=== PATIENT | female | born 1995 | race Caucasian/White ===

== ENCOUNTER 2017-02-21 22:51 | Emergency (ER) | payer BC ==
[~2017-02-21] VITALS: Ht 162.6 cm; Wt 68.0 kg
[~2017-02-21 22:51] MED LIST: CEPH-443 PO; ERYT1OIN6 RIGHT EYE; ONDA4TAB35 PO
[2017-02-21 22:55] VITALS: Ht 162.6 cm; Wt 68.0 kg
[2017-02-22 00:37] LABS: ADD SCAN DIFF NO
[2017-02-22 00:56] LABS: ABNORMAL IP MESSAGE 1; BASOPHILS % 0.2 % (0.0-2.0); EOSINOPHILS # 0.1 10^3/ul (0.0-0.5); EOSINOPHILS % 0.8 % (0.0-7.0); HEMATOCRIT 30.7 % (37.0-47.0); HEMOGLOBIN 8.8 g/dl (12.0-16.0); LYMPHOCYTES # 2.9 10^3/ul (0.8-2.9); LYMPHOCYTES % 23.8 % (15.0-51.0); MEAN CORPUSCULAR HEMOGLOBIN 19.9 pg (29.0-33.0); MEAN CORPUSCULAR HGB CONC 28.7 g/dl (32.0-37.0); MEAN CORPUSCULAR VOLUME 69.5 fl (82.0-101.0); MEAN PLATELET VOLUME 10.5 fl (7.4-10.4); MONOCYTE # 0.8 10^3/ul (0.3-0.9); MONOCYTES % 6.6 % (0.0-11.0); NEUTROPHIL # 8.2 10^3/ul (1.6-7.5); NEUTROPHILS % 67.8 % (39.0-77.0); NUCLEATED RED BLOOD CELLS% 0.2 /100WBC (0.0-0.0); PLATELET COUNT 270 10^3/UL (140-415); RED BLOOD COUNT 4.42 10^6/ul (4.20-5.40); RED CELL DISTRIBUTION WIDTH 16.6 % (11.5-14.5); WHITE BLOOD COUNT 12.1 10^3/ul (4.8-10.8)
--- NOTE | 2017-02-22 00:56 | ERD ---
ER Documentation Chief Complaint Date/Time DATE: 02/22/17 TIME: 00:54 Chief Complaint RLQ abd pain radaiting to back x 1 day HPI Patient is a 21-year-old female who is and states she just found out she was yesterday. Her last menstrual period was in July but she states that she is irregular and she usually only gets her period every 3 months. She denies any nausea vomiting or diarrhea. He has some mild bilateral pelvic pain. She has had occasional spotting but no bleeding at this time. No dysuria hematuria or increased urinary frequency. ROS All systems reviewed and are negative except as per history of present illness. Medications Home Meds Active Scripts Erythromycin (Erythromycin Opth) 3.5 Gm Oint..gm., 1 APPLIC RIGHT EYE QID for 7 Days, EA Prov:LARISSA ARREOLA M. 03/10/15 Ondansetron Hcl* (Zofran* ODT) 4 mg -ODT Tab.disper, 4 MG PO Q6 Y for NAUSEA AND /OR VOMITING, #10 TAB Prov:LARISSA ARREOLA M. 03/10/15 Cephalexin* (Keflex*) 500 Mg Capsule, 500 MG PO BID for 7 Days, CAP Prov:LARISSA ARREOLA M. 03/10/15 Allergies Allergies: Coded Allergies: No Known Allergy (Unverified , 07/28/14) PMhx/Soc Medical and Surgical Hx: pt denies Medical Hx, pt denies Surgical Hx Hx Alcohol Use: No Hx Substance Use: Yes (2 weeks ago) Hx Tobacco Use: No Smoking Status: Never smoker FmHx Family History: No diabetes Physical Exam Vitals Vital Signs Date Time Temp Pulse Resp B/P Pulse Ox O2 Delivery O2 Flow Rate FiO2 02/21/17 22:55 98.3 89 20 114/67 99 Physical Exam General: well developed, well nourished, alert, nontoxic, no distress Head: normocephalic, atraumatic Neck: Supple, nontender, no lymphadenopathy, no midline tenderness Respiratory: Clear to auscaultation bilaterally, speaks in full sentences, no use of accesory muscles or labored breathing, no rales, ronchi, or wheezing Cardiovascular: RRR, No murmurs GI: soft, non tender, non distended, negative murphys sign, negative mcburneys point tenderness, no cva tenderness bilaterally, no rebound or guarding Back: no midline tenderness, no step offs or bony abnormalities, sensation to light touch in tact Procedures/MDM This is a 21-year-old female who just found out she is . Her vitals are normal. She states she just found out that she wants to make sure everything is okay with the baby. Her last menstrual period was in July. I initiated an OB workup including labs and ultrasound. I received a call from the diagnostic technician stating that this patient is 26 weeks and therefore she was transferred to labor and delivery and will be examined in labor and delivery. Departure Diagnosis: Primary Impression: Condition: Stable DWAYNE NO PA-C Feb 22, 2017 00:56
[2017-02-22 01:00] LABS: ADD UMIC YES; UR AMORPHOUS CRYSTAL FEW /HPF (NONE SEEN); UR ASCORBIC ACID 40 mg/dL (NEGATIVE); UR BACTERIA FEW /HPF (NONE SEEN); UR BILIRUBIN (Dip) NEGATIVE (NEGATIVE); UR BLOOD (Dip) NEGATIVE (NEGATIVE); UR BUDDING YEAST FEW /HPF (NONE SEEN); UR CLARITY CLOUDY (CLEAR); UR COLOR YELLOW (YELLOW); UR GLUCOSE (Dip) NEGATIVE (NEGATIVE); UR KETONES (Dip) NEGATIVE (NEGATIVE); UR LEUKOCYTE ESTERASE (Dip) 3+ Leu/ul (NEGATIVE); UR MUCUS FEW /HPF (NONE SEEN); UR NITRITE (Dip) NEGATIVE (NEGATIVE); UR RBC 4 /HPF (0-5); UR SPECIFIC GRAVITY (Dip) 1.017 (1.003-1.030); UR SQUAMOUS EPITHELIAL CELL FEW /HPF (FEW); UR TOTAL PROTEIN (Dip) NEGATIVE (NEGATIVE); UR UROBILINOGEN (Dip) 2+ mg/dL (NEGATIVE); UR WBC CLUMPS FEW /HPF (NONE SEEN)
== END 2017-02-22 01:00 | disposition home or self-care (01) ==
LOC: FTE 22:51 → E/R 02-22 01:00
DX: O26.892 Other specified pregnancy related conditions, second trimester (principal); R10.31 Right lower quadrant pain; R10.2 Pelvic and perineal pain; Z3A.26 26 weeks gestation of pregnancy
CPT/HCPCS: 36415; 81001; 84702; 85025; 86900; 86901; Z7502; 99283

== ENCOUNTER 2017-02-22 01:08 | Outpatient (CLI) | payer BC ==
[~2017-02-22] VITALS: Ht 160 cm; Wt 62.7 kg
[2017-02-22 01:40] VITALS: Ht 160 cm; Wt 62.7 kg
[2017-02-22 01:41] VITALS: BP 121/74; PULSE 85; RESP 18
--- NOTE | 2017-02-22 04:39 | RADRPT ---
PROCEDURE: ULTRASOUND BIOPHYSICAL PROFILE CLINICAL INDICATION: 21-year-old female with pelvic pain viability. TECHNIQUE: Multiple sonographic images were obtained in order to perform a biophysical profile The images were reviewed on a PACS workstation. COMPARISON: None. FINDINGS: The cervix is closed with a length of 3.8 cm There is a single viable intrauterine gestation. There is a vertex presentation. Cardiac activity is present at 143 beats per minute. The placenta is ant erior. The results of the biophysical profile are as follows: breathing movement = 2/2 Gross body movement = 2/2 tone = 2/2 Qualitative amniotic fluid volume = 2/2 Amniotic fluid index equals 14.0 cm. This yields a biophysical profile score of 8/8. IMPRESSION: Biophysical profile score is 8/8. .Fuentes Boateng MD, Date Time Electronically viewed and signed by .Fuentes Boateng MD, on 02/22/2017 04:38 .M/
--- NOTE | 2017-02-22 04:40 | RADRPT ---
PROCEDURE: ULTRASOUND OBSTETRICAL CLINICAL INDICATION: 21-year-old female with pelvic pain for size and date determination. TECHNIQUE: Multiple sonographic images of the pelvis were obtained. The images were reviewed on a PACS workstation. COMPARISON: Ultrasound biophysical profile obtained concurrently. FINDINGS: There is a single viable intrauterine gestation. Cardiac activity is present with 134 beats per min yeimi. There is a vertex presentation. Measurements were made in order to determine age. The res ults are as follows: BPD = 7.01 cm, HC = 25.46 cm, AC = 22.99 cm, FL = 5.15 cm. This yields and estimated gestational ag e of approximately 27 weeks 5 days. The estimated date of delivery is May 19, 2017. The EFW = 1084 +/- 163 g (2 lb 6 oz). The placenta is anterior. There is no evidence for an abruption or placenta previa. IMPRESSION: Single viable intrauterine gestation of approximately is 7 weeks 5 days. The estimated date of deli very is May 19, 2017. .Fuentes Boateng MD, Date Time Electronically viewed and signed by .Fuentes Boateng MD, on 02/22/2017 04:40 .M/
--- NOTE | 2017-02-22 06:12 | PN ---
Triage Information Date/Time February 22, 2017 Weeks of Gestation 27w 5d : 3 Para: 2 Diabetes: none Additional information Has not yet been to care as just found out she was yesterday. Pt came in for lower abdominal pain. PMHx: none. PSHx: none. POBHx: x 2. NKDA. Objective Vital Signs Date Time Temp Pulse Resp B/P Pulse Ox O2 Delivery O2 Flow Rate FiO2 02/22/17 01:41 98.4 85 18 121/74 Room Air Heart Rate: 130's Heart Rate Comments With accels to 150 bpm. No decels. No UC's. Exam Cervical exam deferred. Results/Medications Imaging Results EFW 1084 grams. VTX. Anterior placenta. Cx is 3.8 cm. LACIE 14.0. BPP 8/8. Assessment/Plan A: IUP at 27w 5days. False labor. P: D/C home. Pt has already made an appt for care. RENETTA SWANSON MD Feb 22, 2017 06:12
== END 2017-02-22 06:10 | disposition home or self-care (01) ==
LOC: OBT 01:08 → L-D 01:09 → OBT 06:10
PROVIDERS: ATTEND Obstetrics & Gynecology
DX: O47.02 False labor before 37 completed weeks of gestation, second trimester (principal); Z3A.27 27 weeks gestation of pregnancy
CPT/HCPCS: 76815; 76817; 76818; Z7500; G0463

== ENCOUNTER 2017-08-18 16:18 | Emergency (ER) | payer BC, OTHER ==
[~2017-08-18] VITALS: Ht 160 cm; Wt 58.6 kg
[2017-08-18 16:26] VITALS: Ht 160 cm; Wt 58.6 kg
[2017-08-18] MEDS ORDERED: morphine 4 MG/ML VIAL IV STA (17:47)
[2017-08-18] MEDS ORDERED: ONDANSETRON 4 MG INJ IV STA (17:47)
--- NOTE | 2017-08-18 18:06 | RADRPT ---
PROCEDURE: Right upper quadrant abdominal ultrasound. CLINICAL INDICATION: Abdominal pain TECHNIQUE: Hughes scale and color doppler ultrasound images of the right upper quadrant of the abdom en. COMPARISON: None FINDINGS: Pancreas: Visualized portions appear of normal echogenicity without focal lesions. Liver: Morphology:Normal in size. Contour:Normal, no evidence of nodularity. Echogenicity: Normal. Focal lesions:None. Main portal vein: Patent with hepatopetal flow. Biliary System: Gallbladder wall: Normal thickness. Gallstones: Present Intrahepatic bile ducts: Normal caliber. Common bile duct diameter (mm): 1.9 Kidneys: Right length (cm) : 9.8 Right cortical thickness: Normal. Echogenicity: Normal. Hydronephrosis: None. Renal calculi: None. Focal lesions: None. Free fluid/ascites: None. Abdominal aorta: Normal caliber of the visualized segments. Other findings: None. IMPRESSION: Cholelithiasis without evidence of abnormal gallbladder wall thickening to suggest cholecystitis. Normal caliber of the intrahepatic and extrahepatic biliary system. RPTAT: AADD .Jeancarlos Barajas MD, MD Date Time Electronically viewed and signed by .Jeancarlos Barajas MD, MD on 08/18/2017 18:06 .B/
--- NOTE | 2017-08-18 18:28 | ERD ---
ER Documentation Chief Complaint Chief Complaint rt side rib pain x 2 days HPI This is a 22-year-old female who presents emergency department today complaining of right-sided abdominal pain for the past 2 days. States she had pain on the left side a couple of days ago and then it moved to her right side. States she tried Advil with no improvement in symptoms. States that she feels chilled but denies any nausea vomiting, fevers. Denies any cough or dysuria. States that she is currently on her menstrual cycle. ROS All systems reviewed and are negative except as per history of present illness. Medications Home Meds Active Scripts Ondansetron Hcl* (Zofran*) 4 Mg Tablet, 4 MG PO Q6H for NAUSEA AND/OR VOMITING, #30 TAB Prov:SANDRA PARRY PA-C 08/19/17 Polyethylene Glycol* (Miralax*) 17 Gm Powd.pack, 17 GM PO DAILY, #14 Prov:SANDRA PARRY PA-C 08/19/17 Acetaminophen* (Tylophen*) 500 Mg Capsule, 1 CAP PO Q6H Y for PAIN AND OR ELEVATED TEMP, #30 CAP Prov:SANDRA PARRY PA-C 08/19/17 Ferrous Sulfate* (Ferrous Sulfate*) 325 Mg Tabec, 325 MG PO BID, #30 TAB Prov:SANDRA PARRY PA-C 08/19/17 Naproxen* (Naprosyn*) 500 Mg Tablet, 500 MG PO BID Y for PAIN AND/OR INFLAMMATION, #30 TAB Prov:SANDRA PARRY PA-C 08/19/17 Hydrocodone/Acetaminophen ([place] 5-325 Tablet) 1 Each Tablet, 1 TAB PO Q6H Y for PAIN, #12 TAB Prov:SANDRA PARRY PA-C 08/19/17 Doxycycline Hyclate* (Doxycycline Hyclate*) 100 Mg Tablet.dr, 100 MG PO BID for 14 Days, TAB Prov:SANDRA PARRY PA-C 08/19/17 Allergies Allergies: Coded Allergies: No Known Allergy (Unverified , 07/28/14) PMhx/Soc Medical and Surgical Hx: pt denies Medical Hx, pt denies Surgical Hx Hx Alcohol Use: No Hx Substance Use: Yes (2 weeks ago) Hx Tobacco Use: No Physical Exam Vitals Vital Signs Date Time Temp Pulse Resp B/P Pulse Ox O2 Delivery O2 Flow Rate FiO2 08/18/17 16:26 98.1 108 18 117/58 100 Physical Exam Const: NAD Head: Atraumatic Eyes: Normal Conjunctiva ENT: Normal External Ears, Nose and Mouth. Neck: Full range of motion..~ No meningismus. Resp: Clear to auscultation bilaterally Cardio: Regular rate and rhythm, no murmurs Abd: Soft, epigastric and right upper quadrant tenderness non distended. Normal bowel sounds no lower abdominal pain. No tenderness at McBurney's. Skin: No petechiae or rashes Back: No midline or flank tenderness Ext: No cyanosis, or edema Neur: Awake and alert Psych: Normal Mood and Affect Result Diagram: 08/18/17181508/18/171815 Results 24 hrs Laboratory Tests Test 08/18/17 18:16 White Blood Count 17.510^3/ul Red Blood Count 4.8410^6/ul Hemoglobin 9.2g/dl Hematocrit 31.1% Mean Corpuscular Volume 64.3fl Mean Corpuscular Hemoglobin 19.0pg Mean Corpuscular Hemoglobin Concent 29.6g/dl Red Cell Distribution Width 17.0% Platelet Count 16706^3/UL Mean Platelet Volume 10.0fl Neutrophils % 82.6% Lymphocytes % 10.7% Monocytes % 5.8% Eosinophils % 0.3% Basophils % 0.2% Nucleated Red Blood Cells % 0.0/100WBC Neutrophils # 14.410^3/ul Lymphocytes # 1.910^3/ul Monocytes # 1.010^3/ul Eosinophils # 0.110^3/ul Basophils # 0.010^3/ul Nucleated Red Blood Cells # 0.010^3/ul Urine Color YELLOW Urine Clarity CLEAR Urine pH 7.0 Urine Specific [place] 1.010 Urine Ketones NEGATIVEmg/dL Urine Nitrite NEGATIVEmg/dL Urine Bilirubin NEGATIVEmg/dL Urine Urobilinogen NEGATIVEmg/dL Urine Leukocyte Esterase 2+Purnima/ul Urine Microscopic RBC 3/HPF Urine Microscopic WBC 19/HPF Urine Mucus FEW/HPF Urine Hemoglobin 2+mg/dL Urine Glucose NEGATIVEmg/dL Urine Total Protein NEGATIVEmg/dl Sodium Level 139mmol/L Potassium Level 3.9mmol/L Chloride Level 101mmol/L Carbon Dioxide Level 27mmol/L Anion Gap 15 Blood Urea Nitrogen 5mg/dl Creatinine 0.49mg/dl Glucose Level 108mg/dl Calcium Level 8.7mg/dl Total Bilirubin 0.2mg/dl Direct Bilirubin 0.00mg/dl Indirect Bilirubin 0.2mg/dl Aspartate Amino Transf (AST/SGOT) 23IU/L Alanine Aminotransferase (ALT/SGPT) 69IU/L Alkaline Phosphatase 125IU/L Total Protein 7.6g/dl Albumin 3.6g/dl Globulin 4.00g/dl Albumin/Globulin Ratio 0.90 Lipase 36U/L Current Medications Medications (Trade) Dose Ordered Sig/Izaiah Route PRN Reason Start Time Stop Time Status Last Admin Dose Admin Morphine Sulfate (morphine) 4 mg ONCE STAT IV 08/18/17 17:47 08/18/17 17:49 DC 08/18/17 18:23 Ondansetron HCl (Zofran Inj) 4 mg ONCE STAT IV 08/18/17 17:47 08/18/17 17:49 DC 08/18/17 18:23 Acetaminophen 500 mg 500 mg ONCE STAT PO 08/18/17 19:20 08/18/17 19:21 DC 08/18/17 19:50 Sodium Chloride 1,000 ml @ 1,000 mls/hr Q1H ONCE IV 08/18/17 19:30 08/18/17 20:29 DC 08/18/17 19:49 Ceftriaxone Sodium (Rocephin) 50 ml @ 100 mls/hr ONCE ONCE IVPB 08/18/17 19:30 08/18/17 19:59 DC 08/18/17 19:49 Ketorolac Tromethamine (Toradol) 30 mg ONCE STAT IV 08/18/17 22:25 08/18/17 22:27 DC 08/18/17 22:33 IV Flush 10 ml 10 ml STK-MED ONCE .ROUTE 08/18/17 23:16 08/18/17 23:17 DC Sodium Chloride (NS) 100 ml @ ud STK-MED ONCE .ROUTE 08/18/17 23:16 08/18/17 23:17 DC Iohexol (Omnipaque 300mg/ ml) 150 ml STK-MED ONCE .ROUTE 08/18/17 23:16 08/18/17 23:17 DC DIAGNOSTIC IMAGING REPORT Patient: EDMUNDO WEBSTER : 1995 Age: 22 Sex: F MR #: [id number] DOS: 08/18/17 174 Ordering MD: SANDRA PARRY PA-C Location: [facility] Room/Bed: PROCEDURE: Right upper quadrant abdominal ultrasound. CLINICAL INDICATION: Abdominal pain TECHNIQUE: Hughes scale and color doppler ultrasound images of the right upper quadrant of the abdomen. COMPARISON: None FINDINGS: Pancreas: Visualized portions appear of normal echogenicity without focal lesions. Liver: Morphology:Normal in size. Contour:Normal, no evidence of nodularity. Echogenicity: Normal. Focal lesions:None. Main portal vein: Patent with hepatopetal flow. Biliary System: Gallbladder wall: Normal thickness. Gallstones: Present Intrahepatic bile ducts: Normal caliber. Common bile duct diameter (mm): 1.9 Kidneys: Right length (cm) : 9.8 Right cortical thickness: Normal. Echogenicity: Normal. Hydronephrosis: None. Renal calculi: None. Focal lesions: None. Free fluid/ascites: None. Abdominal aorta: Normal caliber of the visualized segments. Other findings: None. IMPRESSION: Cholelithiasis without evidence of abnormal gallbladder wall thickening to suggest cholecystitis. Normal caliber of the intrahepatic and extrahepatic biliary system. RPTAT: AADD .Jeancarlos Barajas MD, MD Date Time Electronically viewed and signed by .Jeancarlos Barajas MD, MD on 08/18/2017 18:06 .B/ CC: SANDRA PARRY PA-C DIAGNOSTIC IMAGING REPORT Patient: EDMUNDO WEBSTER : 1995 Age: 22 Sex: F MR #: [id number] DOS: 08/18/17 194 Ordering MD: SANDRA PARRY PA-C Location: [facility] Room/Bed: PROCEDURE: CT abdomen and pelvis without contrast. CLINICAL INDICATION: Abdominal Pain TECHNIQUE: CT scan of the abdomen and pelvis without contrast was performed and is reconstructed at 2.5 mm contiguous axial intervals from the dome of the diaphragm to the inferior pubic rami.. The patient was scanned without intravenous contrast. Sagittal and coronal reformatted images were obtained from the axial source images. The calculated radiation dose measures 282 mGy centimeters. The CTDI measures 5 mGy. Individualized dose optimization technique was used for the performance of this exam. This included 1. Automated exposure control. 2. Adjustment of the mA and / or kV according to the patient's size. 3. Use of iterative reconstructed technique. COMPARISON: None. FINDINGS: The lung bases are clear of any infiltrate or nodule. No effusion is seen. The liver is of normal size, contour and attenuation with no mass or ductal dilatation. There is a noncalcified gallstone. No splenic, adrenal or pancreatic abnormalities present. Kidneys are of normal size and contour. No hydronephrosis, calculus or masses seen. Ureters are of normal course and caliber with no stone. No bladder mass or stone is present. The uterus is unremarkable. The right adnexa is prominent measuring 4 cm in transverse diameter. There is no associated calcification. The mabry are somewhat indistinct. There is stranding of the fat in the right wm pelvis surrounding the adnexa. The appendix is not confidently visualized. It is unclear if findings represent evidence of tubal ovarian abscess or possibly appendicitis. There is no aneurysm. No adenopathy is present. No bowel mass or obstruction is present. No ascites or pneumoperitoneum is visualized. The osseous structures are intact. IMPRESSION: Nonvisualization appendix. Prominent right adnexa. Stranding fat right wm pelvis. Question TO A versus appendicitis. Consider pelvic ultrasound and / or repeat targeted CT of right lower quadrant with intravenous and rectal or delayed oral contrast for more definitive diagnosis. Noncalcified gallstones. .Yosef Garcia MD, MD Date Time Electronically viewed and signed by .Yosef Garcia MD, on 08/18/2017 20: 42 .A/ CC: SANDRA PARRY PA-C DIAGNOSTIC IMAGING REPORT Patient: EDMUNDO WEBSTER : 1995 Age: 22 Sex: F MR #: [id number] DOS: 08/18/17 0000 Ordering MD: SANDRA PARRY PA-C Location: [facility] Room/Bed: PROCEDURE: US Pelvis. CLINICAL INDICATION: pelvic pain TECHNIQUE: Multiple sonographic images of the pelvis were obtained utilizing a transabdominal technique. The images were reviewed on a PACS workstation. COMPARISON: Recent CT FINDINGS: The uterus is normal in size with a normal appearance of the myometrium. The uterus measures 9.10 x 4.7 x 6.6 cm. The endometrial stripe is homogeneous in appearance and has the thickness of 6 mm. The ovaries are normal in size and echogenicity. Normal Doppler flow is identified in both ovaries. The right ovary measures 4.5 x 3.0 x 3.4 cm. The left ovary measures 2.6 x 1.2 x 2.1 cm. No free fluid is present within the pelvis. RPTAT: AA IMPRESSION: Unremarkable pelvic ultrasound. .Gabe Ramirez MD MD Date Time Electronically viewed and signed by .Gabe Ramirez MD, MD on 08/18/2017 22: 09 .S/ CC: SANDRA PARRY PA-C Procedures/MDM This is a a 22-year-old female who presents the emergency department today complaining of right-sided abdominal pain for the past couple of days. Patient' s intake report stated that her pain was in her ribs. Patient was tachycardic at 108. Her oxygen saturation 100%. She is afebrile however on physical exam patient had epigastric and right upper quadrant tenderness and therefore did obtain laboratory workup as well as imaging Laboratory workup shows an elevated white blood cell count of 17.5. Her hemoglobin is decreased at 9.2. Her platelets are within normal limits. Electrolytes are within normal limits. Glucose is within normal limits. Liver enzymes are within normal limits. Bilirubin is within normal limits. Lipase is within normal limits. UA shows 2+ leukocyte esterase and 19 microscopic white blood cells. test is negative Right upper quadrant ultrasound shows cholelithiasis without evidence of abnormal gallbladder wall thickening to suggest cholecystitis. The common bile duct measures 1.9 mm in maximal dimension. I went back to reevaluate the patients pain and the patient felt warm and I rechecked her temperature myself and she had a fever of 101.1. Patient was then given IV fluids and Rocephin. Patient reported that her pain was starting to return however this time it was lower. Given that patient had an elevated white blood cell count, now lower abdominal pain physical exam and was febrile I did obtain a CT abdomen pelvis noncontrast CT abdomen pelvis noncontrast shows nonvisualization of the appendix there is a prominent right adnexa with stranding of the fat in the right hemipelvis. This is questionable TOA versus appendicitis. Ultrasound of the pelvis was then obtained Pelvic ultrasound is unremarkable. there is normal Doppler flow to both ovaries. No free fluid within the pelvis. Right ovary was slightly bigger than the left ovary. Given normal pelvic ultrasound and concern on CT for possible appendicitis I consulted my attending physician Dr. Briceno, who saw and evaluated the patient and recommended repeating the CT scan with IV contrast. CT abdomen pelvis IV contrast shows an appearance of an unremarkable retrocecal appendix is partially delineated. There is again the appearance of inflammation in the right mid pelvis which appears to involve the right adnexal region which could be secondary to right TOA versus pelvic inflammatory disease. There is trace free fluid in the cul-de-sac. There is minimal inflammation again seen in the right inferior perihepatic region. There is gallstones. I spoke to the radiologist who read the CT abdomen pelvis with IV contrast who recommended gynecology consult. He does not feel that this patient has acute appendicitis given the location of the elevation however he did state that there was a significant amount of inflammation in the area and this may be related to pelvic inflammatory disease. I did place a call to the on-call laborist, Dr. Gustafson came and evaluated the patient and did a pelvic exam on her and he feels that this is most likely pelvic inflammatory disease. Patient had already been given Rocephin. He did offer to have the patient stay in the hospital and admit her given that she had had a fever earlier. I did recheck it and patient's temperature was 98.7. Patient indicated that she would prefer to go home and follow-up as an outpatient. She was given referral information for Dr. Gustafson's office. I also obtain blood cultures and a urine culture and send the urine for gonorrhea and chlamydia prior to her discharge. Patient will be discharged home with medication pain, Zofran for nausea and doxycycline for 2 weeks. Patient was instructed to return for any persistent or worsening of symptoms, vomiting fevers or inability to take oral medications. Patient understood and agreed with the plan. Patient's symptoms consistent with1) gallstone 2) pelvic inflammatory disease 3) UTI 4) Anemia At this time the patient is stable for discharge and outpatient management. Patient should follow up with their PCP in the next 1-2 days. They may return to the emergency department sooner for any persistent or worsening of symptoms. Patient understood and agreed with the plan. Departure Diagnosis: Primary Impression: Gallstones Additional Impression: PID (acute pelvic inflammatory disease) Condition: SANDRA Chavez PA-C Aug 18, 2017 18:28
[2017-08-18 18:37] LABS: BASOPHILS % 0.2 % (0.0-2.0); EOSINOPHILS # 0.1 10^3/ul (0.0-0.5); EOSINOPHILS % 0.3 % (0.0-7.0); HEMATOCRIT 31.1 % (37.0-47.0); HEMOGLOBIN 9.2 g/dl (12.0-16.0); LYMPHOCYTES # 1.9 10^3/ul (0.8-2.9); LYMPHOCYTES % 10.7 % (15.0-51.0); MEAN CORPUSCULAR HGB CONC 29.6 g/dl (32.0-37.0); MEAN CORPUSCULAR VOLUME 64.3 fl (82.0-101.0); MONOCYTES % 5.8 % (0.0-11.0); NEUTROPHIL # 14.4 10^3/ul (1.6-7.5); NEUTROPHILS % 82.6 % (39.0-77.0); PLATELET COUNT 418 10^3/UL (140-415); RED BLOOD COUNT 4.84 10^6/ul (4.20-5.40); WHITE BLOOD COUNT 17.5 10^3/ul (4.8-10.8)
[2017-08-18 18:44] LABS: ADD UMIC YES; UR ASCORBIC ACID NEGATIVE (NEGATIVE); UR BILIRUBIN (Dip) NEGATIVE (NEGATIVE); UR BLOOD (Dip) 2+ mg/dL (NEGATIVE); UR CLARITY CLEAR (CLEAR); UR COLOR YELLOW (YELLOW); UR GLUCOSE (Dip) NEGATIVE (NEGATIVE); UR KETONES (Dip) NEGATIVE (NEGATIVE); UR LEUKOCYTE ESTERASE (Dip) 2+ Leu/ul (NEGATIVE); UR MUCUS FEW /HPF (NONE SEEN); UR NITRITE (Dip) NEGATIVE (NEGATIVE); UR RBC 3 /HPF (0-5); UR TOTAL PROTEIN (Dip) NEGATIVE (NEGATIVE); UR UROBILINOGEN (Dip) NEGATIVE (NEGATIVE)
[2017-08-18 18:55] LABS: ALBUMIN 3.6 g/dl (3.3-4.9); ALBUMIN/GLOBULIN RATIO 0.9; BILIRUBIN,INDIRECT 0.2 mg/dl (0-1.1); BILIRUBIN,TOTAL 0.2 mg/dl (0.2-1.3); CALCIUM 8.7 mg/dl (8.4-10.2); CREATININE 0.49 mg/dl (0.44-1.00); POTASSIUM 3.9 mmol/L (3.5-5.1); TOTAL PROTEIN 7.6 g/dl (6.1-8.1)
[2017-08-18] MEDS ORDERED: ACETAMINOPHEN 500 MG TAB PO STA (19:20)
[2017-08-18] MEDS ORDERED: SOD CHLORIDE 0.9% 1,000 ML IV ONE (19:30)
[2017-08-18] MEDS ORDERED: CEFTRIAXONE 1 GM/50 ML (PMX) 50 ML IVPB ONE (19:30)
--- NOTE | 2017-08-18 20:43 | RADRPT ---
PROCEDURE: CT abdomen and pelvis without contrast. CLINICAL INDICATION: Abdominal Pain TECHNIQUE: CT scan of the abdomen and pelvis without contrast was performed and is reconstructed a t 2.5 mm contiguous axial intervals from the dome of the diaphragm to the inferior pubic rami.. The patient was scanned without intravenous contrast. Sagittal and coronal reformatted images were obt ained from the axial source images. The calculated radiation dose measures 282 mGy centimeters. The CTDI measures 5 mGy. Individualized dose optimization technique was used for the performance of this exam. This included 1. Automated exposure control. 2. Adjustment of the mA and / or kV according to the patient's size. 3. Use of iterative reconstructed technique. COMPARISON: None. FINDINGS: The lung bases are clear of any infiltrate or nodule. No effusion is seen. The liver is of normal size, contour and attenuation with no mass or ductal dilatation. There is a n oncalcified gallstone. No splenic, adrenal or pancreatic abnormalities present. Kidneys are of normal size and contour. No hydronephrosis, calculus or masses seen. Ureters are o f normal course and caliber with no stone. No bladder mass or stone is present. The uterus is unrem arkable. The right adnexa is prominent measuring 4 cm in transverse diameter. There is no associated calcification. The mabry are somewhat indistinct. There is stranding of the fat in the right wm p mary alice surrounding the adnexa. The appendix is not confidently visualized. It is unclear if findings represent evidence of tubal ovarian abscess or possibly appendicitis. There is no aneurysm. No adenopathy is present. No bowel mass or obstruction is present. No ascites or pneumoperitoneum is visualized. The osseous structures are intact. IMPRESSION: Nonvisualization appendix. Prominent right adnexa. Stranding fat right wm pelvis. Question TO A ve rsus appendicitis. Consider pelvic ultrasound and / or repeat targeted CT of right lower quadrant wi th intravenous and rectal or delayed oral contrast for more definitive diagnosis. Noncalcified gallstones. .Yosef Garcia MD, Date Time Electronically viewed and signed by .Yosef Garcia MD, on 08/18/2017 20:42 .A/
--- NOTE | 2017-08-18 22:09 | RADRPT ---
PROCEDURE: US Pelvis. CLINICAL INDICATION: pelvic pain TECHNIQUE: Multiple sonographic images of the pelvis were obtained utilizing a transabdominal tech nique. The images were reviewed on a PACS workstation. COMPARISON: Recent CT FINDINGS: The uterus is normal in size with a normal appearance of the myometrium. The uterus measures 9.10 x 4.7 x 6.6 cm. The endometrial stripe is homogeneous in appearance and has the thickness of 6 mm. The ovaries are normal in size and echogenicity. Normal Doppler flow is identified in both ovaries. The right ovary measures 4.5 x 3.0 x 3.4 cm. The left ovary measures 2.6 x 1.2 x 2.1 cm. No free fluid is present within the pelvis. RPTAT: AA IMPRESSION: Unremarkable pelvic ultrasound. .Gabe Ramirez MD, MD Date Time Electronically viewed and signed by .Gabe Ramirez MD, MD on 08/18/2017 22:09 .S/
[2017-08-18] MEDS ORDERED: KETOROLAC 30 MG INJ IV STA (22:25)
[2017-08-18] MEDS ORDERED: SOD CHLORIDE 0.9% 100 ML ONE (23:16)
[2017-08-18] MEDS ORDERED: IOHEXOL 300MG/ML 150 ML BTL ONE (23:16)
--- NOTE | 2017-08-18 23:43 | RADRPT ---
PROCEDURE: CT Abdomen and Pelvis with contrast. CLINICAL INDICATION: Abdominal pain TECHNIQUE: CT scan of the abdomen and pelvis with contrast was performed on a multi-detector high- resolution CT scanner. The patient was scanned following the intravenous administration of 100 cc o f Omnipaque-300. Coronal and sagittal reformatted images were obtained from the axial source images . Images were reviewed on a high-resolution PACS workstation. The total exam CTDI equals 4.85 mGy an d the total exam DLP equals 279.98 mGy-cm. One or more the following dose reduction techniques were utilized: Automated exposure control, adjus tment of the mA and / or kV according to patient's size, or use of iterative reconstruction techniqu e. DICOM images are available. COMPARISON: CT 08/18/2017 and pelvic ultrasound of 08/18/2017 FINDINGS: Minimal dependent atelectasis posterior lung bases. No pneumoperitoneum is seen. Cholelithiasis is a pparent. No abnormality is seen in the liver, spleen, pancreas, adrenals. There is minimal fluid in bilateral renal collecting systems. No definite renal or ureteral stone is seen on this contrast-enh anced study. No definite abnormality of the underdistended stomach is seen. No biliary dilatation is seen. No abdominal aortic aneurysm is seen. No abnormality of the bladder is seen. Tampon in vagina . No definite abnormality of the colon is seen. There is appearance of an unremarkable retrocecal ap pendix partially delineated. No dilated small bowel loops are seen. No definite abnormality of the u terus is seen. There is again the appearance of inflammation in the right mid pelvis which appears t o involve the right adnexal region which could be secondary to tubo-ovarian abscess/pelvic inflammat ory disease. Trace free fluid in cul-de-sac. Small scattered likely bone islands. Appearance of minimal degenerative changes at sacroiliac joints. IMPRESSION: There is appearance of an unremarkable retrocecal appendix partially delineated. There is again the appearance of inflammation in the right mid pelvis which appears to involve the right adnexal region which could be secondary to right tubo-ovarian abscess/pelvic inflammatory disease. Trace free flui d in cul-de-sac. Minimal inflammation is again seen in the right inferior perihepatic region. Cholel ithiasis. Nonspecific minimal fluid in bilateral renal collecting systems. Please see above. RPTAT: HJES .Jose Menon MD, MD Date Time Electronically viewed and signed by .Jose Menon MD, MD on 08/18/2017 23:43 .S/
[2017-08-19] MEDS ORDERED: DOXY100T20 PO (00:56)
[2017-08-19] MEDS ORDERED: NAPR-260 PO (00:56)
[2017-08-19] MEDS ORDERED: HYDR-906 PO (00:56)
[2017-08-19] MEDS ORDERED: FER325 PO (00:57)
[2017-08-19] MEDS ORDERED: POLY17PO6 PO (00:57)
[2017-08-19] MEDS ORDERED: ACET500C5 PO (00:57)
[2017-08-19] MEDS ORDERED: ONDA4TAB8 PO (01:00)
[2017-08-19 01:52] VITALS: BP 107/58; PULSE 85; RESP 18; TEMP 98.2
--- NOTE | 2017-08-19 14:44 | EN ---
Date/Time of Note Date/Time of Note DATE: 08/19/17 TIME: 02:00AM ER Progress Note Supervisory note Subjective: This patient was evaluated by me in conjunction with the advanced practice provider. Very briefly, this is a 22-year-old female who is presenting with right-sided abdominal pain. The patient initially endorsed right upper quadrant abdominal pain. Her ultrasound of the right upper quadrant revealed gallstones but no evidence of cholecystitis. When the advanced practice provider discussed the case with me, she had received a CT of the abdomen without contrast that was concerning for inflammatory changes in the right lower quadrant. Soft, Family history: As indicated on the initial history and physical of this ER visit Objective: Vital signs reviewed Const: No apparent distress, well-developed, well-nourished Head: Normocephalic, Atraumatic Eyes: Normal Conjunctiva. ENT: Normal External Ears, Nose and Mouth. Neck: No meningismus. Resp: Symmetric chest wall arechiga, no audible wheezes Cardio: Deferred Abd: Not distended, generalized abdominal discomfort with voluntary guarding, no rebound Skin: No petechiae or rashes Back: Deferred Ext: No cyanosis, or edema Neur: Awake and alert, oriented 4. No facial droop. Normal strength and sensation. Psych: Normal mood and affect MDM: The CT without contrast revealed inflammatory changes in the right lower quadrant. The appendix was not well-visualized. It was unclear based on this imaging modality if the patient could have appendicitis versus PID versus a tubo -ovarian abscess. There is recommendation by the radiologist to obtain a pelvic ultrasound versus a CAT scan. After speaking with the advanced practice provider and reviewing the radiologic studies already performed, the decision was made to proceed with the pelvic ultrasound and proceed with a repeat CT scan with IV contrast if the ultrasound was indeterminate. I did review the patient's blood work. She did have a leukocytosis, which is suspicious for a infectious etiology. The patient has a mild anemia does not require emergent treatment. Her urinalysis showed signs of urinary tract infection which will require treatment. Assessment: PID, leukocytosis, UTI, anemia Plan: The ultrasound and CT scan were reviewed by myself and read by the radiologist as follows: US Pelvis FINDINGS: The uterus is normal in size with a normal appearance of the myometrium. The uterus measures 9.10 x 4.7 x 6.6 cm. The endometrial stripe is homogeneous in appearance and has the thickness of 6 mm. The ovaries are normal in size and echogenicity. Normal Doppler flow is identified in both ovaries. The right ovary measures 4.5 x 3.0 x 3.4 cm. The left ovary measures 2.6 x 1.2 x 2.1 cm. No free fluid is present within the pelvis. IMPRESSION: Unremarkable pelvic ultrasound. Electronically viewed and signed by .Gabe Ramirez MD, MD on 08/18/2017 22: 09 CT Abdomen/Pelvis with Contrast IMPRESSION: There is appearance of an unremarkable retrocecal appendix partially delineated. There is again the appearance of inflammation in the right mid pelvis which appears to involve the right adnexal region which could be secondary to right tubo-ovarian abscess/pelvic inflammatory disease. Trace free fluid in cul-de-sac. Minimal inflammation is again seen in the right inferior perihepatic region. Cholelithiasis. Nonspecific minimal fluid in bilateral renal collecting systems. Please see above. Electronically viewed and signed by .Jose Menon MD, MD on 08/18/2017 23:43 A gynecology consult was placed, and the on-call runner on evaluated the patient in the emergency department. He felt that the symptoms were more likely to be related by pelvic inflammatory disease of her tubo-ovarian abscess. The patient was given a dose of Rocephin in the emergency department. The patient will be sent home with a prescription for a 14 day course of doxycycline. This should also cover the patient's urinary tract infection. The patient will be seen by the runner on later this week as an outpatient. She will be given strict precautions with which to return. At this time, the patient is stable for discharge. ROB MCCRACKEN MD Aug 19, 2017 14:44
--- NOTE | 2017-08-21 10:41 | EN ---
Date/Time of Note Date/Time of Note DATE: 08/21/17 TIME: 10:41 ER Progress Note I placed a call to the patient today to follow up with her. A message was left for her to make sure that she made an appointment for the [facility] specialist today and to return to the emergency department for any worsening of symptoms, persistent symptoms persistent fevers. SANDRA PARRY PA-C Aug 21, 2017 10:41
== END 2017-08-19 01:54 | disposition home or self-care (01) ==
LOC: FTE 16:18
DX: K80.20 Calculus of gallbladder without cholecystitis without obstruction (principal); N73.9 Female pelvic inflammatory disease, unspecified
CPT/HCPCS: 36415; 74176; 74177; 76705; 76856; 80053; 81001; 83690; 85025; 87040; 87086; 87591; 96365; 96375; J0696; J1885; J2270; J2405; J7030; Q9967; Z7502; Z7610

== ENCOUNTER 2018-01-10 17:43 | Emergency (ER) | END 2018-01-10 22:35 | disposition home or self-care (01) ==